=== PATIENT | male | born 1935 | race Caucasian/White ===

== ENCOUNTER 2016-07-29 00:46 | Inpatient (IN) | payer OTHER ==
[~2016-07-29] VITALS: Ht 177.8 cm; Wt 58.3 kg
[2016-07-29] VITALS (9 sets, daily range): BP systolic 107–161; BP diastolic 65–87; PULSE 68–93; TEMP 36.6–37; O2SAT 91–96; Ht 177.8 cm; Wt 58.3 kg
[2016-07-29] MEDS ORDERED: AMLO2.5T PO (01:16)
[2016-07-29] MEDS ORDERED: ACET-1311 PO (01:17)
[2016-07-29] MEDS ORDERED: LISI-729 PO (01:18)
[2016-07-29] MEDS ORDERED: MAGN400T6 PO (01:18)
[2016-07-29] MEDS ORDERED: MELA1TAB5 PO (01:20)
[2016-07-29] MEDS ORDERED: MECL1TAB42 PO (01:21)
[2016-07-29] MEDS ORDERED: PSEU60TA80 PO (01:23)
[2016-07-29] MEDS ORDERED: CHLO1TAB47 PO (01:24)
[2016-07-29] MEDS ORDERED: POTA10CA28 PO (01:25)
[2016-07-29] MEDS ORDERED: SUCR1TAB29 PO (01:26)
[2016-07-29] MEDS ORDERED: CYAN100020 PO (01:27)
[2016-07-29] MEDS ORDERED: NUTR-706 PO (01:30)
[2016-07-29] MEDS ORDERED: MULTCHW PO (01:32)
--- NOTE | 2016-07-29 03:07 | Medical Consult ---
Consultation Note Consultation Note Reason for consult: ? food impaction Source: Pt - he is a vague, inconsistent historian - he does not answer questions readily and is tangential. I presume that this is due to dementia History of Present Illness 80 yo M who presented to [facility] with apparent complaint of difficulty tolerating PO. He is not able to tell me when his symptoms started; he says that his symptoms began 3-4 weeks ago when first asked, and then saying that his symptoms started 2-3 days ago when asked again, and then saying that his symptoms began while eating a soup and sandwich on Sunday evening. Upon presentation to [facility], he could not tolerate a trial of liquids, and was given Ativan, Zofran, and Glucagon. He underwent a CXR, which showed no evidence of aspiration; on my read, I cannot perceive an air fluid level in the esophagus. He underwent a CT which showed no evidence of bowel obstruction, and shows a large hiatal hernia; on my read, the stomach is not dilated. He was then transferred to [facility]. During transit to [facility], he reportedly vomited approx 150 cc of food. At present, he is not able to clearly describe his symptoms. When asked, he denies a sensation of food being stuck in his esophagus, and denies chest or abd pain. He denies cough. He tells me that he has no prior h/o dysphagia. Review of Systems See HPI for pertinent positives and negatives. A total of ten systems were reviewed and were otherwise negative. Family History No pertinent family history Social History Smoking Status: Never Smoker Alcohol Use: none Drug Use: none Occupation Status: retired Current/Historical Medications Scheduled Amlodipine (Norvasc), 2.5 MG PO DAILY Cyanocobalamin (Vitamin B12), 1 TAB PO DAILY Enteral Nutrition Formula (Ensure), 1 CAN PO BID Lisinopril (Prinivil), 5 MG PO DAILY Magnesium Oxide (Mag-Ox), 400 MG PO DAILY Melatonin ( Melatonin), 3 MG PO HS Multiple Vitamins W/ Minerals (Centrum Silver), 1 DOSE PO DAILY Potassium Chloride (Micro-K Ext Rel), 20 MEQ PO DAILY Sucralfate (Carafate), 1 GM PO DIRECTED Scheduled PRN Acetaminophen (Tylenol), 650 MG PO TID PRN for Pain Chlorpheniramine-Phenylephrine ([place] Plus Cold), 1 TAB PO Q4 PRN for Cough Meclizine Hcl (Meclizine Hcl), 25 MG PO Q8 PRN for Dizziness or Vertigo Pseudoephedrine-Guaifenesin (Mucinex D), 1 TAB PO Q6 PRN for Cough Allergies Coded Allergies: Acetaminophen (Unverified Allergy, Unknown, unknown, 07/29/16) Oxycodone (Unverified Allergy, Unknown, unknown, 07/29/16) Propoxyphene (Unverified Allergy, Unknown, unknown, 07/29/16) Physical Ex - ED Scribe Physical Exam Vital Signs Date Time Temp Pulse Resp B/P Pulse Ox O2 Delivery O2 Flow Rate FiO2 07/29/16 00:50 Room Air 07/29/16 00:50 36.9 77 16 136/85 97 Room Air Physical Exam GENERAL: Awake, alert, well-appearing, in no distress. He is markedly kyphotic. He burps once while I am examining him. HENT: Normocephalic, atraumatic. Oropharynx unremarkable. EYES: Normal conjunctiva. Sclera non-icteric. NECK: Supple. No nuchal rigidity. FROM. No JVD. RESPIRATORY: Clear to auscultation. CARDIAC: Regular rate, normal rhythm. ABDOMEN: Soft, non-distended. No tenderness to palpation. No rebound or guarding. No masses. Colostomy in the left side of the abdomen. Large RECTAL: Deferred. MUSCULOSKELETAL: Chest examination reveals no tenderness. No joint edema. LOWER EXTREMITIES: Calves are equal size bilaterally and non-tender. No edema. No discoloration. NEURO: Normal sensorium. He has a mild resting tremor. SKIN: No rash or jaundice noted. PSYCH: He is aware that he is in the hospital, but does not know he is in [place]. His speech is lucid. His affect is flat. I gave him a few small sips of water, which he is able to tolerate. Labs reviewed from [facility]. A/P: ? Food impaction - I suspect that he has chronic esophageal dysmotility, and that he has an esophageal food impaction. Differential includes gastric outlet obstruction related to hiatal hernia. I will scope him in the morning in the OR; he will require intubation for endoscopy.
--- NOTE | 2016-07-29 05:27 | EMERGENCY ROOM VISIT NOTE ---
History Report prepared by Hiral: Sofia Alejo Under the Supervision of: Dr. Alonso Reece M.D. First contact with patient: 01:43 Chief Complaint: FOOD BOLUS Stated Complaint: FOOD BOLUS Nursing Triage Summary: Patient states he has had food stuck in his throat for 3 days, went to [facility] via ambulance and was transferred here for further evaluation. History of Present Illness The patient is a 80 year old male who presents to the Emergency Room with complaints of a persistent food bolus that started three days ago. The patient notes that, for the past two days, anything he eats or drinks comes back up. Earlier today, the patient was seen at the [place] emergency department. The patient was given Ativan, Zofran, and Glucagon, and Pepcid. An EKG was performed that showed sinus rhythm, premature supraventricular complexes, with no evidence of ischemia. A CT scan was performed and showed a large hiatal hernia. The x-ray confirmed this. No abdominal pathology was noted. Laboratory studies were as follows: Negative urinalysis. Creatinine was mildly elevated at 2.0. CBC was unremarkable. [place] physicians spoke to Dr. Irwin ( gastroenterology) who recommended that the patient be seen here. Per nursing staff, the patient vomited when he arrived. Pt denies LOC, headache, fevers, chills, diaphoresis, visual changes, neck pain, chest pain, breathing difficulties, abdominal pain, back pain, melena, hematochezia, urinary symptoms , numbness, weakness, lymphadenopathy, rash, or other complaints. Source of History: patient Onset: 3 days ago Position: throat Quality: other (food bolus) Timing: other (persistent) Note: He cannot swallow food or liquids without it coming back up. Review of Systems See HPI for pertinent positives and negatives. A total of ten systems were reviewed and were otherwise negative. Past Medical & Surgical Medical Problems: (1) Hiatal hernia Family History No pertinent family history Social History Smoking Status: Never Smoker Alcohol Use: none Drug Use: none Occupation Status: retired Current/Historical Medications Scheduled Amlodipine (Norvasc), 2.5 MG PO DAILY Cyanocobalamin (Vitamin B12), 1 TAB PO DAILY Enteral Nutrition Formula (Ensure), 1 CAN PO BID Lisinopril (Prinivil), 5 MG PO DAILY Magnesium Oxide (Mag-Ox), 400 MG PO DAILY Melatonin (Kp Melatonin), 3 MG PO HS Multiple Vitamins W/ Minerals (Centrum Silver), 1 DOSE PO DAILY Potassium Chloride (Micro-K Ext Rel), 20 MEQ PO DAILY Sucralfate (Carafate), 1 GM PO DIRECTED Scheduled PRN Acetaminophen (Tylenol), 650 MG PO TID PRN for Pain Chlorpheniramine-Phenylephrine ([place] Plus Cold), 1 TAB PO Q4 PRN for Cough Meclizine Hcl (Meclizine Hcl), 25 MG PO Q8 PRN for Dizziness or Vertigo Pseudoephedrine-Guaifenesin (Mucinex D), 1 TAB PO Q6 PRN for Cough Allergies Coded Allergies: Acetaminophen (Unverified Allergy, Unknown, unknown, 07/29/16) Oxycodone (Unverified Allergy, Unknown, unknown, 07/29/16) Propoxyphene (Unverified Allergy, Unknown, unknown, 07/29/16) Physical Exam Vital Signs Date Time Temp Pulse Resp B/P Pulse Ox O2 Delivery O2 Flow Rate FiO2 07/29/16 04:37 88 20 156/88 97 Room Air 07/29/16 02:55 93 18 142/87 95 Room Air 07/29/16 00:50 Room Air 07/29/16 00:50 36.9 77 16 136/85 97 Room Air Physical Exam GENERAL: Awake, alert, well-appearing, in no distress HENT: Normocephalic, atraumatic. Oropharynx unremarkable. EYES: Normal conjunctiva. Sclera non-icteric. NECK: Supple. No nuchal rigidity. FROM. No JVD. RESPIRATORY: Clear to auscultation. CARDIAC: Regular rate, normal rhythm. Extremities warm and well perfused. Pulses equal. ABDOMEN: Soft, non-distended. No tenderness to palpation. No rebound or guarding. No masses. Colostomy in the left side of the abdomen. RECTAL: Deferred. MUSCULOSKELETAL: Chest examination reveals no tenderness. No joint edema. LOWER EXTREMITIES: Calves are equal size bilaterally and non-tender. No edema. No discoloration. NEURO: Normal sensorium. No sensory or motor deficits noted. SKIN: No rash or jaundice noted. Medical Decision & Procedures ED Course 0144: The patient was evaluated in room C6. A complete history and physical exam was performed. 0153: I discussed the case with Dr. Irwin (ENT); he will see the patient. Medical Decision Triage Nursing notes reviewed. The patient's presentation and history were concerning for vomiting and possible food impaction. Etiologies such as food impaction, gastroenteritis, food borne illness, infections, obstruction, pancreatitis, appendicitis, diverticulitis, inflammatory bowel disease, GI bleed, biliary pathology, toxicologic as well as others were entertained. Workup from the prior hospital was reviewed. The patient was hemodynamically stable. Consultation was made with Dr. Irwin of gastroenterology. He evaluated the patient in the Emergency Room. After his evaluation he felt that he would be a complicated endoscopic procedure and requested the patient be admitted and nothing by mouth for internal medicine. I did discuss the case with Dr. Laguerre for admission. The chart was completed utilizing [employer] Speech voice recognition software. Grammatical errors, random word insertions, pronoun errors, and incomplete sentences are an occasional consequence of this system due to software limitations, ambient noise, and hardware issues. Any formal questions or concerns about the content, text, or information contained within the body of this dictation should be directly addressed to the physician for clarification. Consults Time Called: 0150 Consulting Physician: Dr. Irwin (ENT) Returned Call: 0153 I discussed the case with Dr. Irwin (ENT); he will see the patient. Impression Primary Impression: Food impaction of esophagus Additional Impressions: Vomiting Hiatal hernia Scribe Attestation The scribe's documentation has been prepared under my direction and personally reviewed by me in its entirety. I confirm that the note above accurately reflects all work, treatment, procedures, and medical decision making performed by me. Departure Information Dispostion Being Evaluated By Hospitalist Patient Instructions [facility] Problem Qualifiers
[2016-07-29] MEDS ORDERED: D5W AND NSS 1,000 ML IV SCH (06:15)
[2016-07-29] MEDS ORDERED: ONDANSETRON INJ 2 MG/ML 2 ML VIAL IV PRN (06:15)
--- NOTE | 2016-07-29 06:25 | History and Physical ---
History & Physical Date & Time of Service: Jul 29, 2016 at 06:14 Chief Complaint: Food Bolus Primary Care Physician: No Doctor, Assigned History of Present Illness Source: hospital records, [facility] 80 y/o M w/Hx hiatal hernia, colon CA w/colostomy placement, esophageal strictures, advanced dementia - presents with dysphagia and vomiting. The pt was at [facility] earlier in the day due to an inability to tolerate PO. He was diagnosed and treated for esophageal impaction with Ativan and Glucagon to no avail. He was then transferred to [facility] for evaluation by the GI service and is now scheduled to proceed to the OR for endoscopy. This will apparently require intubation as it is expected to be a prolonged procedure. The pt himself cannot provide any information on evaluation for admission. He denies any symptoms and does not know where he is. He asked to borrow my car several times informing me that he was stranded in [facility] and needed to pick up worker a package. He became agitated when I found this amusing but is otherwise cooperative. Past Medical/Surgical History Medical Problems: (1) Hiatal hernia Status: Chronic Family History No pertinent family history Cannot be obtained Social History Smoking Status: Never Smoker Drug Use: none Occupational Status: retired Allergies Coded Allergies: Acetaminophen (Unverified Allergy, Unknown, unknown, 07/29/16) Oxycodone (Unverified Allergy, Unknown, unknown, 07/29/16) Propoxyphene (Unverified Allergy, Unknown, unknown, 07/29/16) Home Medications Scheduled Amlodipine (Norvasc), 2.5 MG PO DAILY Cyanocobalamin (Vitamin B12), 1 TAB PO DAILY Enteral Nutrition Formula (Ensure), 1 CAN PO BID Lisinopril (Prinivil), 5 MG PO DAILY Magnesium Oxide (Mag-Ox), 400 MG PO DAILY Melatonin (Kp Melatonin), 3 MG PO HS Multiple Vitamins W/ Minerals (Centrum Silver), 1 DOSE PO DAILY Potassium Chloride (Micro-K Ext Rel), 20 MEQ PO DAILY Sucralfate (Carafate), 1 GM PO DIRECTED Scheduled PRN Acetaminophen (Tylenol), 650 MG PO TID PRN for Pain Chlorpheniramine-Phenylephrine ([place] Plus Cold), 1 TAB PO Q4 PRN for Cough Meclizine Hcl (Meclizine Hcl), 25 MG PO Q8 PRN for Dizziness or Vertigo Pseudoephedrine-Guaifenesin (Mucinex D), 1 TAB PO Q6 PRN for Cough Review of Systems Cannot be obtained - admitted for dyphagia and vomiting Physical Exam Vital Signs Date Time Temp Pulse Resp B/P Pulse Ox O2 Delivery O2 Flow Rate FiO2 07/29/16 05:30 90 18 145/72 96 Room Air 07/29/16 04:37 88 20 156/88 97 Room Air 07/29/16 02:55 93 18 142/87 95 Room Air 07/29/16 00:50 Room Air 07/29/16 00:50 36.9 77 16 136/85 97 Room Air General Appearance: WD/WN, no apparent distress Head: normocephalic Eyes: normal inspection, EOMI ENT: normal ENT inspection, pharynx normal Neck: supple, no JVD Respiratory/Chest: chest non-tender, no accessory muscle use Abdomen/GI: + pertinent finding (Colostomy present - nontender) Diagnostics Laboratory Results BUN creat 34/2 - K 5 Labs otherwise normal Diagnostic Radiology CT abdomen : Large hiatal hernia includes fundus of stomach - LL quad colostomy , enlarged prostate, L5 spondylolisthesis EKG Sinus with PVCs - no evidence of prior PR or LVH Impression Assessment and Plan 80 y/o M w/Hx hiatal hernia, colon CA w/colostomy placement, esophageal strictures, advanced dementia - presents with dysphagia and vomiting. The pt was at [facility] earlier in the day due to an inability to tolerate PO. He was diagnosed and treated for esophageal impaction with Ativan and Glucagon to no avail. He was then transferred to [facility] for evaluation by the GI service and is now scheduled to proceed to the OR for endoscopy. This will apparently require intubation as it is expected to be a prolonged procedure. 1) Esophageal impaction - pt is scheduled for for endoscopy under general anesthesia - There is no record of cardiac disease including CHF and CAD but risk assessment cannot be accurately completed by history in this pt - our best estimate on his RCRI is 0.4% and we would not recommend any further w/u prior to the procedure. On chart review there is record of "comfort measures status" and DNR so that these will be temporarily reversed for the procedure. He will be provided with IVF and symptomatic treatment as needed. 2) Renal impairment - unclear if chronic - recommend aggressive IVF and repeat BMP prior to restarting JOE 3) Hiatal hernia - this is large and there may be limited options to deal with it if it is the cause of the esophageal obstruction. Would discuss with POA following endoscopy. 4) HTN - Meds held - consider low dose Bblocker or Cardizem if needed 5) Hx Colon CA - colostomy is functional Total time for this admit including review of outpt records, review of GI consult, med rec, discussion with ER MD 36 min Temporary code status will need to be full - SCDs pending endoscopy Level of Care Med/Surg Resuscitation Status FULL RESUSCITATION VTE Prophylaxis VTE Risk Assessment Done? Y/N: Yes Risk Level: Moderate Given or contraindicated: SCD's
[2016-07-29] MEDS ORDERED: MoRPHine SULFATE 2 MG/ML CARP IV PRN (07:00)
[2016-07-29] MEDS ORDERED: LORAZEPAM 2 MG/ML 1 ML VIAL IV PRN (07:00)
[2016-07-29 09:08] LABS: HEMATOCRIT 35.5 % (42-52); MEAN CELL VOLUME 84.3 fL (80-100); MEAN CORPUSCULAR HEMOGLOBIN 27.3 pg (25-34); MEAN CORPUSCULAR HGB CONC 32.4 g/dl (32-36); MEAN PLATELET VOLUME 8.3 fL (7.4-10.4); PLATELET COUNT 246 K/uL (130-400); RED BLOOD COUNT 4.21 M/uL (4.7-6.1)
[2016-07-29 09:20] LABS: PARTIAL THROMBOPLASTIN RATIO 1.2; PROTHROMBIN TIME (PATIENT) 11.1 SECONDS (9.0-12.0)
[2016-07-29] MEDS: D5W AND NSS 1,000 ML IV SCH ×3 (10:03→23:14)
[2016-07-29] MEDS: ONDANSETRON INJ 2 MG/ML 2 ML VIAL IV PRN (10:14)
--- NOTE | 2016-07-29 11:30 | Progress Note ---
Progress Note No events since last seen. Pt is without complaint. Per nurse, he had single episode of "vomiting spit" this morning. He has not taken any PO. Vital Signs Past 12 Hours Date Time Temp Pulse Resp B/P Pulse Ox O2 Delivery O2 Flow Rate FiO2 07/29/16 10:49 36.9 91 18 153/83 93 Room Air 07/29/16 09:59 36.9 91 18 153/83 93 Room Air 07/29/16 05:30 90 18 145/72 96 Room Air 07/29/16 04:37 88 20 156/88 97 Room Air 07/29/16 02:55 93 18 142/87 95 Room Air 07/29/16 00:50 Room Air 07/29/16 00:50 36.9 77 16 136/85 97 Room Air Appears quite comfortable. He is not spitting his secretions during my exam; he can swallow without difficulty. Lungs: Clear CV: RRR Abd: soft, protuberant, colostomy with peristomal hernia Psych: He is awake and alert. He answers basic questions appropriately, but his comprehension appears limited. He is not aware that he is hospitalized, does not know where he lives, and he guesses incorrectly at the year. Labs reviewed - WBC 14.7 A/P Esophageal food impaction - To OR this morning for EGD; awaiting OR slot. - He is unable to give consent, but has no legal POA. I spoke to his nursing unit coordinator, who said that he had voiced a desire to get treatment for his food impaction prior to being seen at [facility]; she agreed to have us proceed with the procedure. This procedure is medically necessary and urgent to prevent aspiration, dehydration, esophageal perforation; the hospitalist and anesthesiologist both agree that the pt is unable to comprehend the nature of the procedure and unable to give consent, and that endoscopy is medically necessary and urgent.
[2016-07-29] MEDS ORDERED: FENTANYL CITRATE INJ 50 MCG/1 ML 2 ML VIAL ONE (11:42)
[2016-07-29] MEDS ORDERED: DEXAMETHASONE SOD INJ 4 MG/ML VIAL ONE (11:42)
[2016-07-29] MEDS ORDERED: PROPOFOL IV EMULSION 10 MG/ML 20 ML VIAL IV ONE (11:42)
[2016-07-29] MEDS ORDERED: NEOSTIGMINE METHYLSULFATE 5 MG/5 ML SYR ONE (11:42)
[2016-07-29] MEDS ORDERED: ROCURONIUM BROMIDE 10 MG/ML 5 ML VIAL ONE (11:42)
[2016-07-29] MEDS ORDERED: GLYCOPYRROLATE INJ 0.2 MG/ML VIAL ONE (11:42)
[2016-07-29] MEDS ORDERED: LIDOCAINE HCL 2% 2 ML VIAL (20MG/ML) ONE (11:42)
[2016-07-29] MEDS ORDERED: ONDANSETRON INJ 2 MG/ML 2 ML VIAL ONE (11:42)
[2016-07-29] MEDS ORDERED: MIDAZOLAM HCL 1 MG/ML 2ML VIAL ONE (11:42)
--- NOTE | 2016-07-29 11:48 | Progress Note ---
Progress Note 07/29/16 1130 Hospitalist Note: Patient seen/examined, chart reviewed, and care plan d/w Dr. Irwin, [facility]. 80yo male with advanced dementia. Admitted for esophageal food impaction. Pt thinks he is in [place], [place] and that I am there to see him "to sell insurance to him for his mother." He does not remember coming from [place] or having vomiting yesterday. He clearly does not have capacity to make decisions for himself. No POA is available to obtain consent for emergency EGD disimpaction. I agree with Dr. Irwin that patient needs emergent EGD to prevent further morbidity. exam - gen - NAD, confused mouth - MM dry, hallitosis heart - RRR, s1, s2, no murmur lungs - CTA b/l abd - soft, colostomy bag in place with brown stool, NT, BS+ ext - no edema A/P: Esophageal food impaction. Agree with Dr. Irwin that he needs emergent EGD. To the OR now for EGD. Chris De La Rosa MD
[2016-07-29] MEDS ORDERED: ATROPINE SULFATE 0.1 MG/ML 5ML SYR IV PRN (12:00)
[2016-07-29] MEDS ORDERED: EpHEDrine SULFATE INJ 50 MG/ML AMP IV PRN (12:00)
[2016-07-29] MEDS ORDERED: CLINDAMYCIN PHOS 150 MG/ML 2 ML VIAL ONE (13:04)
[2016-07-29] MEDS ORDERED: ESMOLOL HCL 10 MG/ML 10 ML VIAL ONE (13:17)
[2016-07-29] MEDS ORDERED: FLUMAZENIL 0.1 MG/1 ML 10 ML VIAL IV ONE (13:41)
[2016-07-29] MEDS: HEPARIN SOD 5000 UNIT/0.5 ML CARP SQ SCH ×2 (14:00→21:32)
--- NOTE | 2016-07-29 14:34 | Anesthesiology Progress Note ---
Anesthesia Post Op Note Date & Time Jul 29, 2016 at 14:34 Vital Signs Pain Intensity: 0.0 Vital Signs Past 12 Hours Date Time Temp Pulse Resp B/P Pulse Ox O2 Delivery O2 Flow Rate FiO2 07/29/16 14:22 91 Nasal Cannula 4.0 07/29/16 14:15 36.8 93 18 107/65 91 Nasal Cannula 4.0 07/29/16 14:12 36.9 07/29/16 13:55 92 16 98/60 91 Nasal Cannula 4 07/29/16 13:45 86 16 101/57 98 Mask 10 07/29/16 13:35 85 16 101/57 100 Mask 10 07/29/16 13:27 36.1 95 16 100/55 100 Mask 10 07/29/16 10:49 36.9 91 18 153/83 93 Room Air 07/29/16 09:59 36.9 91 18 153/83 93 Room Air 07/29/16 05:30 90 18 145/72 96 Room Air 07/29/16 04:37 88 20 156/88 97 Room Air 07/29/16 02:55 93 18 142/87 95 Room Air Notes Mental Status: alert / awake / arousable, participated in evaluation Pt Amnestic to Procedure: Yes Nausea / Vomiting: adequately controlled Pain: adequately controlled Airway Patency, RR, SpO2: stable & adequate BP & HR: stable & adequate Hydration State: stable & adequate Anesthetic Complications: no major complications apparent
--- NOTE | 2016-07-29 14:52 | GI REPORT ---
Procedure Date: 07/29/2016 11:40 AM Procedure: Upper GI endoscopy Indications: Foreign body in the esophagus Medicines: See the Anesthesia note for documentation of the administered medications Complications: No immediate complications. Estimated Blood Loss: Estimated blood loss: none. Procedure: Pre-Anesthesia Assessment: - ASA Grade Assessment: III - A patient with severe systemic disease. After obtaining informed consent, the endoscope was passed under direct vision. Throughout the procedure, the patient's blood pressure, pulse, and oxygen saturations were monitored continuously. The On-site loaner was introduced through the mouth, and advanced to the antrum of the stomach. The upper GI endoscopy was accomplished without difficulty. The patient tolerated the procedure well. Findings: The esophagus was markedly tortuous. There was food and fluid through the esophagus. The GE junction was at 40 cm. At the GE junction, there was a large amount of impacted, soft food. I attempted to use a net and a grasper to remove the food, but the food was too soft, and this was not effective. I used a biopsy forceps, a rat tooth, a snare, and a suction cap to successfully tunnel through the food bolus. I then passed a dilator balloon through the tunnel into the stomach; the balloon passed without resistance, and was inflated to 10 mm and then withdrawn into the esophagus to successfully break up the food bolus. Lavage with iwona bradley was used to continue to break up the bolus, and the remaining portion of the impacted food was then washed into the stomach. There was a moderately obstructing ring at the GE junction. There was mild esophagitis at the GE junction. The stomach was normal. Impression: - Impacted food in distal esophagus, removed. - Tortuous esophagus, suggestive of underlying motility disorder. - Ring and esophagitis. Recommendation: Discharge pt to general medical floor and observe overnight. Adv diet to purees. BID oral PPI. He can be discharged tomorrow on purees and twice daily PPI. He should have repeat EGD in 4 weeks for dilation; this can be done at [place], which may be more convenient for pt. Chinmay Irwin M.D. Chinmay Irwin MD 07/29/2016 2:51:26 PM This report has been signed electronically. Note Initiated On: 07/29/2016 11:40 AM
[2016-07-29 18:26] LABS: CALCIUM 8.8 mg/dl (8.5-10.1); CREATININE 1.7 mg/dl (0.60-1.40); MAGNESIUM 1.8 mg/dl (1.8-2.4); POTASSIUM 4.3 mmol/L (3.5-5.1)
[2016-07-29] MEDS: PANTOprazole SOD 40 MG TAB PO SCH (21:01)
[2016-07-29] MEDS: LORAZEPAM INJ 0.5 MG in SYRINGE 0.75 ML IV PRN (21:42)
[2016-07-30 00:02] VITALS: BP 130/77; PULSE 100; TEMP 38.2; O2SAT 92
[2016-07-30] MEDS: LORAZEPAM INJ 0.5 MG in SYRINGE 0.75 ML IV PRN (03:59)
[2016-07-30] MEDS: HEPARIN SOD 5000 UNIT/0.5 ML CARP SQ SCH ×3 (06:20→21:47)
[2016-07-30 07:18] VITALS: BP 108/57; PULSE 89; TEMP 36.3; O2SAT 90
[2016-07-30] MEDS: PANTOprazole SOD 40 MG TAB PO SCH ×2 (08:21→21:46)
[2016-07-30] MEDS: D5W AND NSS 1,000 ML IV SCH (08:22)
[2016-07-30 09:25] LABS: HEMATOCRIT 28.8 % (42-52); MEAN CELL VOLUME 85.7 fL (80-100); MEAN CORPUSCULAR HEMOGLOBIN 27.7 pg (25-34); MEAN CORPUSCULAR HGB CONC 32.3 g/dl (32-36); MEAN PLATELET VOLUME 8.2 fL (7.4-10.4); PLATELET COUNT 182 K/uL (130-400); RED BLOOD COUNT 3.36 M/uL (4.7-6.1); WHITE BLOOD COUNT 16.43 K/uL (4.8-10.8)
[2016-07-30 09:45] LABS: BASO % 0.1 %; BASO ABS # 0.02 K/uL (0-0.2); COMPLETE YES; EOS % 0.7 %; IG% 0.4 %; LYMPH % 3.2 %; LYMPH ABS # 0.53 K/uL (1.2-3.4); MONO % 5.5 %; NEUT % 90.1 %
[2016-07-30 09:50] LABS: BUN/CREATININE RATIO 12.8 (10-20); CALCIUM 8.5 mg/dl (8.5-10.1); CREATININE 1.7 mg/dl (0.60-1.40); POTASSIUM 3.9 mmol/L (3.5-5.1)
--- NOTE | 2016-07-30 10:12 | DIAGNOSTIC IMAGING REPORT ---
CHEST 2 VIEWS ROUTINE CLINICAL HISTORY: Fever, hypoxia. COMPARISON STUDY: No previous studies for comparison. FINDINGS: The heart is at the upper limits of normal in size. There is a scoliosis. The patient is hyperinflated. There are right mid to lower lung zone airspace opacities suspicious for a pneumonia. There are old left-sided rib deformities. A left midlung zone nodular opacities felt to relate to underlying rib deformity. There is a hiatal hernia. There is no significant pleural fluid.[ IMPRESSION: 1. Right mid to lower lung zone airspace opacities suspicious for pneumonia. Clinical and radiographic follow-up is recommended 2. Scoliosis. Hiatal hernia. Old left-sided rib fractures. Electronically signed by: Juan A Zamarripa M.D. 07/30/2016 10:10 AM Dictated Date/Time: 07/30/2016 10:09 AM
[2016-07-30] MEDS ORDERED: AMPICILLIN/SULBACTAM CONSULT ACTIVE PRN ×2 (11:00)
[2016-07-30] MEDS: LACTOBACILLUS ACIDOPHILUS (FLORANEX) TAB PO SCH ×2 (12:32→18:13)
[2016-07-30] MEDS: AMPICILLIN/SULBACTAM SOD INJ 3,000 MG in SODIUM CHLORIDE 0.9% 100ML 100 ML IV SCH ×2 (12:32→18:13)
[2016-07-30] MEDS: ONDANSETRON INJ 2 MG/ML 2 ML VIAL IV PRN (12:32)
[2016-07-30 15:26] VITALS: BP 127/76; PULSE 84; TEMP 37.5; O2SAT 93
--- NOTE | 2016-07-30 23:39 | Progress Note ---
Subjective Date of Service: Jul 30, 2016. Subjective Pt evaluation today including: conversation w/ patient, physical exam, chart review, lab review, review of studies (cxr), conversation w/ consumer experience consultant ( gastroenterology, speech, and PT), review of inpatient medication list Pain: denies PO Intake: did not tolerate mech soft diet at lunch today (had emesis) Pt more awake and alert today. He does not remember his EGD yesterday. He can tell me the name of his personal custodial in [place], however. He has mild cough. Low-grade temperature last night. Speech saw patient, recommended mech soft/slippery diet. After vomiting mech soft GI recommended going back to full liquids. PT stated he was unsteady with walking and recommended OT evaluation. Problem List Medical Problems: (1) Food impaction of esophagus Status: Acute (2) Hiatal hernia Status: Chronic (3) Vomiting Status: Acute Review of Systems Constitutional: No fever Respiratory: + cough, No dyspnea at rest Cardiac: No chest pain Abdomen: + vomiting, No pain Objective Vital Signs Date Time Temp Pulse Resp B/P Pulse Ox O2 Delivery O2 Flow Rate FiO2 07/30/16 16:00 Room Air 07/30/16 15:26 37.5 84 18 127/76 93 Room Air 07/30/16 07:18 36.3 89 20 108/57 90 Room Air 07/30/16 07:18 Room Air 07/30/16 00:06 Room Air 07/30/16 00:02 38.2 100 20 130/77 92 Room Air Physical Exam General Appearance: no apparent distress ENT: pharynx normal Neck: no JVD Respiratory/Chest: + crackles (dense, right base, extending 1/2 way up back), + pertinent finding (left lung clear) Cardiovascular: regular rate, rhythm, no gallop, no murmur Abdomen: normal bowel sounds, non tender, soft, no organomegaly Extremities: no pedal edema Neurologic/Psychiatric: alert, + disoriented Laboratory Results Last 24 Hours Test 07/30/16 09:07 White Blood Count 16.43 K/uL Red Blood Count 3.36 M/uL Hemoglobin 9.3 g/dL Hematocrit 28.8 % Mean Corpuscular Volume 85.7 fL Mean Corpuscular Hemoglobin 27.7 pg Mean Corpuscular Hemoglobin Concent 32.3 g/dl Platelet Count 182 K/uL Mean Platelet Volume 8.2 fL Neutrophils (%) (Auto) 90.1 % Lymphocytes (%) (Auto) 3.2 % Monocytes (%) (Auto) 5.5 % Eosinophils (%) (Auto) 0.7 % Basophils (%) (Auto) 0.1 % Neutrophils # (Auto) 14.80 K/uL Lymphocytes # (Auto) 0.53 K/uL Monocytes # (Auto) 0.90 K/uL Eosinophils # (Auto) 0.12 K/uL Basophils # (Auto) 0.02 K/uL RDW Standard Deviation 53.2 fL RDW Coefficient of Variation 16.8 % Immature Granulocyte % (Auto) 0.4 % Immature Granulocyte # (Auto) 0.06 K/uL Red Blood Cell Morphology Unremarkable Sodium Level 144 mmol/L Potassium Level 3.9 mmol/L Chloride Level 111 mmol/L Carbon Dioxide Level 22 mmol/L Anion Gap 11.0 mmol/L Blood Urea Nitrogen 22 mg/dl Creatinine 1.70 mg/dl Est Creatinine Clear Calc Drug Dose 29.1 ml/min Estimated GFR () 43.5 Estimated GFR (Non- 37.5 BUN/Creatinine Ratio 12.8 Random Glucose 88 mg/dl Calcium Level 8.5 mg/dl Assessment and Plan 80yo male with: 1. esophageal food impaction 2nd to esophageal dysmotility, s/p emergent EGD by Dr. Irwin 07/29/16. PPI twice daily recommended. Repeat EGD in 4 weeks recommended. Diet - full liquids; when tolerating such can ultimately advance to [facility] soft/ slippery. 2. esophagitis - PPI twice daily (as seen on EGD). 3. esophageal ring - will need dilatation in 4 weeks. 4. RML/RLL pneumonia - most certainly aspiration from recent vomiting - start unasyn IV. 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 Suspect Cr 1.7 is his baseline. Repeat BMP in am. 6. leukocytosis - likely due to #4. 7. anemia - drop in H/H possibly dilutional? NO bleeding seen on EGD. Repeat CBC in am. 8. dementia - by history. Stage of such not known. 9. encephalopathy, metabolic due to #1 and #4?? MS seems better today, but still not oriented fully. 10. DVT proph - heparin. 11. social - patient does NOT have a POA. I contacted his personal custodial in [place] yesterday and the staff there report no POA on record, no family, no friends. If you ask the patient this information he cannot give the names of any person. Spoke with Brayan from today. We are making a referral to Office of Aging to address this POA issue. I did find out from calling his personal custodial that he sees a Dr. Michael Christopher in [place] for his primary care needs. After several calls I spoke with a Dr. Zoya Carvajal who was on-call for Dr. Christopher. I asked Dr. Carvajal to pass the message on to Dr. Christopher about Mr. Jackson being in the hospital and that he has no POA. If it is true he has no living friends/family then he will need a guardian appointed by the state. I do not feel, at least as of this date, that the patient has capacity. Perhaps, however, his mental status will improve with Rx of the pneumonia. PT, OT dandy ordered to assess his ability to return to personal care or if he needs SNF placement total time today about 70 minutes Continued [facility] stay due to: inadequate po fluid intake, ambulation difficulties , multiple IV medications needed Discharge planning: uncertain
[2016-07-31 00:06] VITALS: BP 138/72; PULSE 87; TEMP 37.1; O2SAT 96
[2016-07-31] MEDS: AMPICILLIN/SULBACTAM SOD INJ 3,000 MG in SODIUM CHLORIDE 0.9% 100ML 100 ML IV SCH ×5 (00:19→23:57)
[2016-07-31] MEDS: LORAZEPAM INJ 0.5 MG in SYRINGE 0.75 ML IV PRN (00:43)
[2016-07-31] MEDS: D5W AND NSS 1,000 ML IV SCH (05:27)
[2016-07-31] MEDS: HEPARIN SOD 5000 UNIT/0.5 ML CARP SQ SCH ×3 (05:32→21:24)
[2016-07-31 08:06] VITALS: BP 164/80; PULSE 79; TEMP 36.8; O2SAT 96
--- NOTE | 2016-07-31 08:29 | Progress Note ---
Subjective Date of Service: Jul 31, 2016. Subjective pt is pleasantly confused with some recollection of orientation and others with tangential questions and inappropriate comments Problem List Medical Problems: (1) Food impaction of esophagus Status: Acute (2) Hiatal hernia Status: Chronic (3) Vomiting Status: Acute Review of Systems Constitutional: + fatigue, + weakness, No chills, No fever ENT: + sore throat, + trouble swallowing Respiratory: + cough, No shortness of breath, No sputum Cardiac: No chest pain, No edema Abdomen: No constipation, No diarrhea, No nausea, No pain, No vomiting Neurologic: + balance problems, + memory loss, + weakness, No paralysis Objective Vital Signs Date Time Temp Pulse Resp B/P Pulse Ox O2 Delivery O2 Flow Rate FiO2 07/31/16 08:06 36.8 79 18 164/80 96 Room Air 07/31/16 07:33 Room Air 07/31/16 00:06 37.1 87 20 138/72 96 Room Air 07/31/16 00:00 Room Air 07/30/16 16:00 Room Air 07/30/16 15:26 37.5 84 18 127/76 93 Room Air Physical Exam General Appearance: WD/WN, + mild distress Neck: supple, no JVD Respiratory/Chest: chest non-tender, lungs clear, normal breath sounds Cardiovascular: regular rate, rhythm, no murmur Abdomen: normal bowel sounds, non tender, soft Extremities: no pedal edema, no calf tenderness Neurologic/Psychiatric: alert, + disoriented Laboratory Results Last 24 Hours Test 07/30/16 09:07 07/31/16 04:44 White Blood Count 16.43 K/uL Red Blood Count 3.36 M/uL Hemoglobin 9.3 g/dL Hematocrit 28.8 % Mean Corpuscular Volume 85.7 fL Mean Corpuscular Hemoglobin 27.7 pg Mean Corpuscular Hemoglobin Concent 32.3 g/dl Platelet Count 182 K/uL Mean Platelet Volume 8.2 fL Neutrophils (%) (Auto) 90.1 % Lymphocytes (%) (Auto) 3.2 % Monocytes (%) (Auto) 5.5 % Eosinophils (%) (Auto) 0.7 % Basophils (%) (Auto) 0.1 % Neutrophils # (Auto) 14.80 K/uL Lymphocytes # (Auto) 0.53 K/uL Monocytes # (Auto) 0.90 K/uL Eosinophils # (Auto) 0.12 K/uL Basophils # (Auto) 0.02 K/uL RDW Standard Deviation 53.2 fL RDW Coefficient of Variation 16.8 % Immature Granulocyte % (Auto) 0.4 % Immature Granulocyte # (Auto) 0.06 K/uL Red Blood Cell Morphology Unremarkable Sodium Level 144 mmol/L Potassium Level 3.9 mmol/L Chloride Level 111 mmol/L Carbon Dioxide Level 22 mmol/L Anion Gap 11.0 mmol/L Blood Urea Nitrogen 22 mg/dl Creatinine 1.70 mg/dl Est Creatinine Clear Calc Drug Dose 29.1 ml/min Estimated GFR () 43.5 Estimated GFR (Non- 37.5 BUN/Creatinine Ratio 12.8 Random Glucose 88 mg/dl Calcium Level 8.5 mg/dl Assessment and Plan 80 M with swallowing issues, initially with esophageal food impaction, since removed emergently, then developed aspiration pneumonia, has issues with medical decision making and poa esophageal food impaction 2nd to esophageal dysmotility, s/p emergent EGD by Dr. Irwin 07/29/16. esophageal ring - will need dilatation in 4 weeks. PPI twice daily recommended. Diet - full liquids; when tolerating such can ultimately advance to [facility] soft/ slippery. Aspiration pneumonian with metabolic encephalopathy - unasyn IV. CKD stage 3/4 anemia - drop in H/H possibly dilutional? NO bleeding seen on EGD. Repeat CBC in am. DVT proph - heparin. patient does NOT have a POA. Dr Glover contacted his personal detention in [place] 07/29 and the staff there report no POA on record, no family, no friends. If you ask the patient this information he cannot give the names of any person. Case Management notified 07/30. making a referral to Office of Aging to address this POA issue. PT, OT evals ordered to assess his ability to return to personal care or if he needs SNF placement Continued [facility] stay due to: inadequate po fluid intake, ambulation difficulties , multiple IV medications needed Discharge planning: uncertain
[2016-07-31 08:45] LABS: BASO % 0.2 %; BASO ABS # 0.02 K/uL (0-0.2); COMPLETE YES; EOS % 3.2 %; HEMATOCRIT 29.2 % (42-52); IG% 0.5 %; LYMPH % 3.7 %; LYMPH ABS # 0.49 K/uL (1.2-3.4); MEAN CELL VOLUME 84.6 fL (80-100); MEAN CORPUSCULAR HEMOGLOBIN 27.8 pg (25-34); MEAN CORPUSCULAR HGB CONC 32.9 g/dl (32-36); MEAN PLATELET VOLUME 9.1 fL (7.4-10.4); MONO % 7.1 %; NEUT % 85.3 %; PLATELET COUNT 212 K/uL (130-400); RED BLOOD COUNT 3.45 M/uL (4.7-6.1); WHITE BLOOD COUNT 13.07 K/uL (4.8-10.8)
[2016-07-31] MEDS: LACTOBACILLUS ACIDOPHILUS (FLORANEX) TAB PO SCH ×3 (08:56→17:10)
[2016-07-31] MEDS: PANTOprazole SOD 40 MG TAB PO SCH ×2 (08:56→21:03)
[2016-07-31 09:11] LABS: BUN/CREATININE RATIO 12.4 (10-20); CALCIUM 8.8 mg/dl (8.5-10.1); CREATININE 1.6 mg/dl (0.60-1.40); POTASSIUM 3.8 mmol/L (3.5-5.1)
[2016-07-31 14:33] VITALS: BP 181/90; PULSE 79; TEMP 36.4; O2SAT 96
[2016-07-31 15:41] VITALS: BP 170/86; PULSE 69
[2016-07-31 20:15] VITALS: O2SAT 96
[2016-07-31 23:34] VITALS: BP 178/88; PULSE 69; TEMP 36.7; O2SAT 93
[2016-08-01] MEDS: D5W AND NSS 1,000 ML IV SCH (00:45)
[2016-08-01] MEDS: HEPARIN SOD 5000 UNIT/0.5 ML CARP SQ SCH ×3 (05:32→20:53)
[2016-08-01 05:59] LABS: HEMATOCRIT 31.5 % (42-52); MEAN CELL VOLUME 82.7 fL (80-100); MEAN CORPUSCULAR HEMOGLOBIN 27.8 pg (25-34); MEAN CORPUSCULAR HGB CONC 33.7 g/dl (32-36); MEAN PLATELET VOLUME 8.9 fL (7.4-10.4); PLATELET COUNT 228 K/uL (130-400); RED BLOOD COUNT 3.81 M/uL (4.7-6.1)
[2016-08-01] MEDS: AMPICILLIN/SULBACTAM SOD INJ 3,000 MG in SODIUM CHLORIDE 0.9% 100ML 100 ML IV SCH ×4 (06:11→23:21)
[2016-08-01 06:31] LABS: CREATININE 1.6 mg/dl (0.60-1.40)
[2016-08-01] MEDS: LACTOBACILLUS ACIDOPHILUS (FLORANEX) TAB PO SCH ×4 (08:00→17:09)
[2016-08-01 08:24] VITALS: BP 187/100; PULSE 85; TEMP 36.9; O2SAT 96
[2016-08-01] MEDS: AMLODIPINE BESYLATE 5 MG TAB PO SCH ×2 (08:51→11:56)
[2016-08-01] MEDS: PANTOprazole SOD 40 MG TAB PO SCH ×3 (08:51→20:53)
[2016-08-01 11:22] VITALS: BP 176/93
[2016-08-01 15:35] VITALS: BP 163/87; PULSE 90; TEMP 36.5; O2SAT 94
--- NOTE | 2016-08-01 15:35 | Progress Note ---
Subjective Date of Service: Aug 01, 2016. Subjective the pt is confused and refusing meds this am, the pt turned it around and took meds this afternoon Problem List Medical Problems: (1) Food impaction of esophagus Status: Acute (2) Hiatal hernia Status: Chronic (3) Vomiting Status: Acute Review of Systems Constitutional: No chills, No fever, No weakness Respiratory: No cough, No shortness of breath, No sputum Abdomen: No diarrhea, No nausea, No pain, No vomiting Male : No dysuria, No incontinence, No urinary frequency Psychiatric: No anhedonism, No depression symptoms Objective Vital Signs Date Time Temp Pulse Resp B/P Pulse Ox O2 Delivery O2 Flow Rate FiO2 08/01/16 01:16 Room Air 07/31/16 23:34 36.7 69 18 178/88 93 Room Air 07/31/16 20:15 96 Room Air 07/31/16 15:41 69 170/86 07/31/16 15:14 Room Air 07/31/16 14:33 36.4 79 18 181/90 96 Room Air 07/31/16 08:06 36.8 79 18 164/80 96 Room Air Physical Exam General Appearance: WD/WN, + mild distress Neck: supple, no JVD Respiratory/Chest: chest non-tender, normal breath sounds, no respiratory distress, + decreased breath sounds (bases) Cardiovascular: regular rate, rhythm, no murmur Abdomen: normal bowel sounds, non tender, soft Extremities: no pedal edema, no calf tenderness Laboratory Results Last 24 Hours Test 08/01/16 05:12 White Blood Count 11.70 K/uL Red Blood Count 3.81 M/uL Hemoglobin 10.6 g/dL Hematocrit 31.5 % Mean Corpuscular Volume 82.7 fL Mean Corpuscular Hemoglobin 27.8 pg Mean Corpuscular Hemoglobin Concent 33.7 g/dl RDW Standard Deviation 48.8 fL RDW Coefficient of Variation 16.0 % Platelet Count 228 K/uL Mean Platelet Volume 8.9 fL Creatinine 1.60 mg/dl Est Creatinine Clear Calc Drug Dose 30.9 ml/min Estimated GFR () 46.8 Estimated GFR (Non- 40.4 Assessment and Plan 80 M with swallowing issues, initially with esophageal food impaction, since removed emergently, then developed aspiration pneumonia, has issues with medical decision making and poa, pt has waxing and waining cooperation, social service still working on disposition, no new changes medically esophageal food impaction 2nd to esophageal dysmotility, s/p emergent EGD by Dr. Irwin 07/29/16. esophageal ring - will need dilatation in 4 weeks. PPI twice daily Diet - mech soft/slippery. Dementia with behavioral disturbances, will consider nocturnal seroquel and cierra abilify Aspiration pneumonia with metabolic encephalopathy - unasyn IV. Htn, meds stopped due to renal function, bp is up 08/01 will restart norvasc but higher dose CKD stage 3/4 anemia - drop in H/H possibly dilutional? NO bleeding seen on EGD. Repeat CBC in am. DVT proph - heparin. patient does NOT have a POA. Dr Glover contacted his personal longterm in [place] 07/29 and the staff there report no POA on record, no family, no friends. When asked the patient this information he cannot give the names of any person. Case Management notified 07/30. making a referral to Office of Aging to address this POA issue. PT, OT dandy ordered to assess his ability to return to personal care or if he needs SNF placement Continued [facility] stay due to: inadequate po fluid intake, ambulation difficulties , multiple IV medications needed Discharge planning: uncertain
[2016-08-01 20:15] VITALS: O2SAT 96
[2016-08-01] MEDS ORDERED: QUETIAPINE FUMARATE 25 MG TAB PO SCH (21:00)
[2016-08-01] MEDS: LORAZEPAM INJ 0.5 MG in SYRINGE 0.75 ML IV PRN (22:44)
[2016-08-01 23:10] VITALS: BP 151/91; PULSE 84; TEMP 36.7; O2SAT 94
[2016-08-02] MEDS: AMPICILLIN/SULBACTAM SOD INJ 3,000 MG in SODIUM CHLORIDE 0.9% 100ML 100 ML IV SCH ×2 (05:36→11:41)
[2016-08-02] MEDS: HEPARIN SOD 5000 UNIT/0.5 ML CARP SQ SCH ×2 (05:37→14:29)
[2016-08-02 07:21] VITALS: BP 155/76; PULSE 68; TEMP 37; O2SAT 94
[2016-08-02 07:40] VITALS: BP 168/99
[2016-08-02] MEDS: AMLODIPINE BESYLATE 5 MG TAB PO SCH (09:31)
[2016-08-02] MEDS: LACTOBACILLUS ACIDOPHILUS (FLORANEX) TAB PO SCH ×2 (09:31→11:42)
[2016-08-02] MEDS: PANTOprazole SOD 40 MG TAB PO SCH (09:31)
[2016-08-02] MEDS ORDERED: NRV5 PO (11:51)
[2016-08-02] MEDS ORDERED: AMOX875T PO (11:51)
--- NOTE | 2016-08-02 11:54 | Discharge Instructions ---
Discharge Instructions Admission Reason for Admission: Esophageal Obstruction Discharge Discharge Diagnosis / Problem: esophageal food inpaction, aspiration pneumonia Discharge Goals Goal(s): Diagnostic testing, Therapeutic intervention Activity Recommendations Activity Limitations: resume your previous activity . Instructions / Follow-Up Instructions / Follow-Up 80 M with swallowing issues, initially with esophageal food impaction, since removed emergently, then developed aspiration pneumonia, has issues with medical decision making and poa, pt has waxing and waining cooperation esophageal food impaction 2nd to esophageal dysmotility, s/p emergent EGD by Dr. Irwin 07/29/16. esophageal ring - will need dilatation in 4 weeks. PPI twice daily Diet - mech soft/slippery. Dementia with behavioral disturbances, tried nocturnal seroquel, did improve behavior but did may a bit tired during day, will not continue Aspiration pneumonia with metabolic encephalopathy - unasyn IV transiton to augmentin on discharge for 14 day total treatment. Htn, meds stopped due to renal function, bp is up 08/01 will restart norvasc but higher dose, hold lisinopril due to renal failure CKD stage 3/4 Current Hospital Diet Patient's current hospital diet: Full Liquid Diet Discharge Diet Recommended Diet: Full Liquid Diet Diet Texture: Mechanical Soft (ground) Procedures Procedures Performed: Esophagogastroduodenoscopy Pending Studies Studies pending at discharge: no Medical Emergencies . Who to Call and When: Medical Emergencies: If at any time you feel your situation is an emergency, please call 911 immediately. . Non-Emergent Contact Non-Emergency issues call your: Primary Care Provider . . "Provider Documentation" section prepared by Brenton Frank. VTE Core Measure Inpt VTE Proph given/why not?: SCD's
--- NOTE | 2016-08-02 12:00 | Discharge Summary ---
Discharge Summary Admission Date: Jul 29, 2016 at 06:56 Discharge Date: Aug 02, 2016 Discharge Disposition: Personal care Principal Diagnosis: esophageal food impaction, aspiration pneumonia Problems/Secondary Diagnoses: (1) Hiatal hernia Status: Chronic Medication Reconciliation New Medications: Amoxicillin & Pot Clavulanate (Augmentin 875-125 mg) 1 Tab Tab 875 MG PO BID for 10 Days, #20 TAB Amlodipine Besylate (Amlodipine Besylate) 5 Mg Tab 5 MG PO QAM, #30 TAB 6 Refills Continued Medications: Acetaminophen (Tylenol) 325 Mg Tab 650 MG PO TID PRN for Pain, TAB Chlorpheniramine-Phenylephrine ([place] Plus Cold) 1 Tab Tab 1 TAB PO Q4 PRN for Cough Cyanocobalamin (Vitamin B12) 1,000 Mcg Tab 1 TAB PO DAILY Enteral Nutrition Formula (Ensure) Liq 1 CAN PO BID take ensure health shake 2 times a day Magnesium Oxide (Mag-Ox) 400 Mg Tab 400 MG PO DAILY, TAB Meclizine Hcl (Meclizine Hcl) 25 Mg Tab 25 MG PO Q8 PRN for Dizziness or Vertigo for 10 Days, #30 TAB Melatonin (Kp Melatonin) 3 Mg Tab 3 MG PO HS for 30 Days, #30 TAB Multiple Vitamins W/ Minerals (Centrum Silver) 1 Chw Chw 1 DOSE PO DAILY Potassium Chloride (Micro-K Ext Rel) 10 Meq Capcr 20 MEQ PO DAILY, CAP Pseudoephedrine-Guaifenesin (Mucinex D) 1 Tab Tab 1 TAB PO Q6 PRN for Cough for 10 Days, #40 TAB Sucralfate (Carafate) 1 Gm Tab 1 GM PO DIRECTED, TAB to take before meals and at bedtime Discontinued Medications: Amlodipine (Norvasc) 2.5 Mg Tab 2.5 MG PO DAILY, TAB Lisinopril (Prinivil) 5 Mg Tab 5 MG PO DAILY, TAB Discharge Exam Review of Systems: Constitutional: + fatigue, + weakness, No chills, No fever Respiratory: + cough, + dyspnea on exertion, No dyspnea at rest, No shortness of breath, No sputum, No wheezing Cardiovascular: No chest pain, No edema Abdomen: No diarrhea, No nausea, No pain, No vomiting Neurologic: + balance problems, + memory loss, + weakness Physical Exam: General Appearance: WD/WN, no apparent distress ENT: normal ENT inspection, pharynx normal Neck: supple, no JVD Respiratory/Chest: chest non-tender, + decreased breath sounds, + accessory muscle use Cardiovascular: regular rate, rhythm, + systolic murmur Abdomen / GI: normal bowel sounds, non tender, soft Neurologic/Psychiatric: alert, + disoriented Hospital Course 80 M with swallowing issues, initially with esophageal food impaction, since removed emergently, then developed aspiration pneumonia, has issues with medical decision making and poa, pt has waxing and waining cooperation esophageal food impaction 2nd to esophageal dysmotility, s/p emergent EGD by Dr. Irwin 07/29/16. esophageal ring - will need dilatation in 4 weeks. PPI twice daily Diet - mech soft/slippery. Dementia with behavioral disturbances, tried nocturnal seroquel, did improve behavior but did may a bit tired during day, will not continue Aspiration pneumonia with metabolic encephalopathy - unasyn IV transiton to augmentin on discharge for 14 day total treatment. Htn, meds stopped due to renal function, bp is up 08/01 will restart norvasc but higher dose, hold lisinopril due to renal failure CKD stage 3/4 Total Time Spent: Greater than 30 minutes This includes examination of the patient, discharge planning, medication reconciliation, and communication with other providers. Discharge Instructions Please refer to the electronic Patient Visit Report (Discharge Instructions) for additional information.
[2016-08-02 13:11] VITALS: BP 168/99; PULSE 68; TEMP 37; O2SAT 94
[2016-08-02] MEDS ORDERED: PRT40 PO (13:47)
== END 2016-08-02 15:08 | disposition home or self-care (01) | DRG 393 ==
LOC: ENRESERVTM → ENRESERVDT → EDBD 00:46 → C.EDC 00:48 → C.MS2W 06:56
PROVIDERS: ADMIT Internal Medicine; ATTEND Internal Medicine
PROC: 0DC38ZZ Extirpation of Matter from Lower Esophagus, Via Natural or Artificial Opening Endoscopic (ICD-10-PCS; principal; 2016-07-29 10:45)
DX: T18.128A Food in esophagus causing other injury, initial encounter (principal); G93.41 Metabolic encephalopathy; J69.0 Pneumonitis due to inhalation of food and vomit; F03.91 Unspecified dementia, unspecified severity, with behavioral disturbance; N18.3 Chronic kidney disease, stage 3 (moderate); I12.9 Hypertensive chronic kidney disease with stage 1 through stage 4 chronic kidney disease, or unspecified chronic kidney disease; D64.9 Anemia, unspecified; K44.9 Diaphragmatic hernia without obstruction or gangrene; Z85.038 Personal history of other malignant neoplasm of large intestine; Z93.3 Colostomy status; K22.2 Esophageal obstruction; R13.10 Dysphagia, unspecified; Z66 Do not resuscitate; K20.9 Esophagitis, unspecified; X58.XXXA Exposure to other specified factors, initial encounter